=== PATIENT | female | born 1955 | race Caucasian/White ===

== ENCOUNTER → 2017-03-14 | Outpatient (CLI) | payer OTHER ==
[~2017-03-14] MED LIST: ASPI81TA28 PO; CALCTAB5 PO; CHOL100010 PO; ESTR1CRE PV; FSMD/70 PO; OMEG10007 PO; ZOLP5TAB6 PO
--- NOTE | 2017-03-14 15:49 | MAMMOGRAPHY REPORT ---
BILATERAL DIGITAL SCREENING MAMMOGRAM TOMOSYNTHESIS WITH CAD: 03/14/2017 TECHNIQUE: Breast tomosynthesis in addition to standard 2D mammography was performed. Current study was also evaluated with a Computer Aided Detection (CAD) system. COMPARISON: Comparison is made to exams dated: 02/29/2016 mammogram, 12/02/2014 mammogram, 10/08/2013 ma mmogram, 09/25/2012 mammogram, 09/20/2011 mammogram - [facility], and 08/05/2008. BREAST COMPOSITION: The tissue of both breasts is extremely dense, which lowers the sensitivity of m ammography. FINDINGS: No suspicious masses, calcifications, or areas of architectural distortion are noted in ei ther breast. There has been no significant interval change compared to prior exams. IMPRESSION: ACR BI-RADS CATEGORY 1: NEGATIVE There is no mammographic evidence of malignancy. A 1 year screening mammogram is recommended. The pa tient will receive written notification of the results. Approximately 10% of breast cancers are not detected with mammography. A negative mammographic report should not delay biopsy if a clinically suggestive mass is present. Kathy Duran M.D. /:03/14/2017 14:54:22 Shampoo Person: Melodie PORTER(Angela)([place]), [facility] letter sent: Normal 1/2 BI-RADS Code: ACR BI-RADS Category 1: Negative
== END | disposition home or self-care (01) ==
LOC: C.MAMM 13:46
PROVIDERS: ATTEND Obstetrics & Gynecology
DX: Z12.31 Encounter for screening mammogram for malignant neoplasm of breast (principal)

== ENCOUNTER → 2017-11-12 | Outpatient (CLI) | payer OTHER ==
[2017-11-12 13:59] LABS: BLOOD UREA NITROGEN 20 mg/dl (7-18); CALCIUM 8.8 mg/dl (8.5-10.1); CARBON DIOXIDE 26 mmol/L (21-32); CHOLESTEROL 287 mg/dl (0-200); CREATININE 0.98 mg/dl (0.60-1.20); GLUCOSE 94 mg/dl (70-99); LDL CHOLESTEROL CALCULATED 156 mg/dl; POTASSIUM 4.5 mmol/L (3.5-5.1); SODIUM 132 mmol/L (136-145)
== END | disposition home or self-care (01) ==
LOC: C.LABBC 09:02
PROVIDERS: ATTEND Family Medicine Adult Medicine
DX: E78.5 Hyperlipidemia, unspecified (principal)

== ENCOUNTER 2023-05-20 22:41 | Inpatient (IN) ==
[2023-05-20] MEDS ORDERED: ONDANSETRON INJ 2 MG/ML 2 ML VIAL IV STA (22:48)
[2023-05-20] MEDS ORDERED: SODIUM CHLORIDE 0.9% 1,000 ML IV STA (22:48)
[2023-05-20 23:28] LABS: Basophils # (auto) 0.02 K/uL (0.00-0.20); Basophils % (auto) 0.3 %; Eosinophils # (auto) 0.04 K/uL (0.00-0.50); Eosinophils % (auto) 0.6 %; Hemoglobin 12.5 g/dl (12.0-16.0); Immature Granulocytes # (auto) 0.03 K/uL (0.01-0.20); Immature Granulocytes % (auto) 0.5 %; Lymphocytes # (auto) 1.26 K/uL (1.20-3.40); Lymphocytes % (auto) 19.5 %; Mean Corpuscular Hemoglobin 31.1 pg (25.0-34.0); Mean Corpuscular Hgb Conc 34.7 g/dL (32.0-36.0); Mean Corpuscular Volume 89.6 fL (80.0-100.0); Monocytes # (auto) 0.54 K/uL (0.11-0.59); Monocytes % (auto) 8.3 %; Neutrophils # (auto) 4.58 K/uL (1.40-6.50); Neutrophils % (auto) 70.8 %; Platelet Count 209 K/uL (130-400); RDW Coefficient of Variation 11.9 % (11.5-14.5); RDW Standard Deviation 39.1 fL (36.4-46.3); Red Blood Count 4.02 M/uL (4.20-5.40); White Blood Count 6.47 K/ul (4.8-10.8)
[2023-05-20 23:33] LABS: Albumin Globulin Ratio 1.8 (0.9-2); Albumin Level 4.3 gm/dl (3.4-5.0); BUN Creatinine Ratio 18.3 (10-20); Bilirubin,Total 0.8 mg/dl (0.2-1.0); Calcium 8.8 mg/dl (8.6-10.3); Creatinine Clr Calc Pharmacy 57.5 ml/min; Est GFR (African American) 100.7 ml/min; Est GFR (Non-African American) 86.9 ml/min; Globulin 2.4 gm/dl (2.5-4.0); Potassium 4.1 mmol/L (3.5-5.1); Total Protein 6.7 gm/dl (6.0-8.3)
[2023-05-20] MEDS ORDERED: SODIUM CHLORIDE 0.9% 1,000 ML IV ONE (23:38)
--- NOTE | 2023-05-20 23:39 | Emergency Department Note ---
Impression & Plan Acute hyponatremia, Vomiting ED Provider Note NAME: GAUTAM MCGOWAN AGE: 68 SEX: F : 1955 ARRIVES VIA: Walk-In INFORMANT: Patient ED PROVIDER(S): Jj Torres DO CHIEF COMPLAINT: vomiting HPI: Patient is a 68-year-old female with a past medical history of colon polyps, hyperlipidemia that presents to the ER as she just started a bowel prep tonight around 6 PM. She started vomiting persistently following this. She denies any headache or change in vision. No chest pain or shortness of breath. No belly pain. She did not have diarrhea. No dysuria, urgency, or frequency. No other exacerbating or remitting factors. Additional history was obtained by who was present at bedside. ADDITIONAL HISTORY OBTAINED: Per HPI Chronic Medical/Social Conditions Affecting Care: Per HPI PAST MEDICAL HISTORY:See Below PAST SURGICAL HISTORY:See Below FAMILY HISTORY:See Below SOCIAL HISTORY:See Below HOME MEDICATIONS:See Below ALLERGIES:See Below VITALS:See Below PHYSICAL EXAMINATION: GENERAL: Sitting up in bed, alert, well appearing, well nourished, no distress, non-toxic EYE EXAM: normal conjunctiva. OROPHARYNX: mucous membranes are dry LUNGS: Clear to auscultation. Normal chest wall mechanics HEART: no murmurs, S1 normal and S2 normal ABDOMEN: abdomen soft, non-tender, normo-active bowel sounds, no masses, no rebound or guarding. UPPER EXTREMITIES: upper extremities are grossly normal. LOWER EXTREMITIES: No pitting edema. NEURO EXAM: Normal sensorium, cranial nerves II-XII grossly intact, normal speech, no gross weakness of arms, no gross weakness of legs. MEDICAL DECISION MAKING: Patient is a 68-year-old female who presents ER for above-stated complaint. IV was established blood work was obtained. Labs show no significant leukocytosis or anemia. BMP with a significant hyponatremia at 120. LFTs bilirubin were unremarkable. Lipase was normal. UA was clean. Patient complete benign abdominal exam. She was given IV fluids. She is given IV Zofran. She did feel better. With the significant hyponatremia at 120 I do favor that this likely secondary to free water ingestion as she had 7 or 8 16 ounce bottles of water. With the hyponatremia however she was discussed with the hospitalist Dr. Telma Huitron for further evaluation management treatment. External Records Reviewed: Screening by anesthesiology performed yesterday. Note reviewed. Consults/Care Managements Discussions: Per MDM Triage Nursing notes reviewed. Limited review of prior medical records performed Vital Signs: reviewed and remarkable for no significant abnormalities Differential diagnosis: Differential diagnoses includes but is not limited to gastritis, peptic ulcer disease, GERD, gallbladder disease, pancreatitis, small bowel obstruction, appendicitis, diverticulitis, hernia, urinary tract infection, torsion, perforation, trauma, infectious. ER treatment provided: See below Diagnostics interpreted by me include EKG and cardiac monitoring as listed below: -Cardiac Monitoring: An order was placed for continuous cardiac monitoring. The monitor shows a rate of 60 with sinus rhythm. -ECG: none -Laboratory studies:Interpreted by me as stated above in MDM and shown below. Imaging studies: Xrays: As interpreted by me:none CTs show: none Procedures:none Critical Care: None Past Med/Surg History Medical History Insomnia Osteoporosis History of basal cell carcinoma Anemia, unspecified Surgical History History of colonoscopy with polypectomy History of tooth extraction History of wisdom tooth extraction History of exploratory laparotomy Status post Mohs surgery for basal cell carcinoma H/O microdiscectomy L5 Family History Mother Acute myocardial infarction Alzheimer disease Cardiovascular disorder Father Colon cancer, Onset Age: 60 Hypertension Unknown Anemia Sister Breast cancer Family hx colonic polyps Grandfather Colon cancer Brother Family hx colonic polyps Other No family history of adverse response to anesthesia Social History Smoking Status: Never smoker Second Hand Exposure: No; Do You Dip or Chew Tobacco: No; Hx Alcohol Use: Yes Hx Substance Use: No Preferred Language: Palestinian Communication Ability: Effective Certified Welding Inspector Required: No Beliefs That Will Affect Care: None marital status: Current Living Situation: Spouse current occupational status: employed 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 Feels Safe at Home: Yes Diet: vegetarian Physical Activity Frequency: 3-4 Times per Week Sunscreen Use: Yes Assistive Devices: None Allergies Allergies Allergy/AdvReac Type Severity Reaction Status Date / Time No Known Allergies Allergy Verified 05/14/23 15:17 Home Meds Home Medications Medication Instructions Recorded Confirmed calcium carbonate 600 mg calcium 600 mg PO BID 01/27/19 05/20/23 (1,500 mg) tablet cholecalciferol (vitamin D3) 25 1,000 units PO QPM 01/27/19 05/20/23 mcg (1,000 unit) tablet omega-3 fatty acids 1,000 mg 1,000 mg PO QPM 01/27/19 05/20/23 capsule (Fish Oil Concentrate) melatonin 10 mg tablet 5 mg PO HS PRN Sleep 10/03/22 05/20/23 multivitamin (Multiple Vitamins 1 tab PO QPM 12/23/22 05/20/23 tablet) Previous Rx's Medication Instructions Recorded estradiol 0.01% (0.1 mg/gram) 1 g vaginal 2XWK #42.5 grams 05/14/23 vaginal cream zolpidem 5 mg tablet 5 mg PO HS PRN Sleep #10 tabs 05/14/23 Results & Data (ED) Vital Signs Vital Signs - 24 hr 05/20/23 22:45 05/21/23 00:00 05/21/23 00:01 Temperature 35.9 C L 36.6 C Temperature Source Temporal Artery Scan Oral Pulse Rate 66 Pulse Rate [Apical] 61 Respiratory Rate 20 18 Respiratory Effort / Characteristics Non-Labored Spontaneous Respiratory Depth Normal Blood Pressure 146/82 H Blood Pressure [Right Arm] 130/73 Blood Pressure Mean 103 Blood Pressure Mean [Right Arm] 92 Pulse Oximetry 100 99 Oxygen Delivery Method Room Air Room Air Sepsis Recent Fever Within 48 Hours No Sepsis New/Unexplained Change in Mental Status No Sepsis Action Taken by Nursing No Action Required 05/21/23 00:11 Temperature Temperature Source Pulse Rate 61 Pulse Rate [Apical] Respiratory Rate Respiratory Effort / Characteristics Respiratory Depth Blood Pressure Blood Pressure [Right Arm] Blood Pressure Mean Blood Pressure Mean [Right Arm] Pulse Oximetry Oxygen Delivery Method Sepsis Recent Fever Within 48 Hours Sepsis New/Unexplained Change in Mental Status Sepsis Action Taken by Nursing Laboratory Data 05/20/23 23:00 05/21/23 02:14 Lab Results 05/20/23 05/20/23 05/20/23 Range/Units 23:00 23:53 23:55 WBC 6.47 (4.8-10.8) K/ul RBC 4.02 L (4.20-5.40) M/uL Hgb 12.5 (12.0-16.0) g/dl Hct 36.0 L (37.0-47.0) % MCV 89.6 (80.0-100.0) fL MCH 31.1 (25.0-34.0) pg MCHC 34.7 (32.0-36.0) g/dL RDW Std Deviation 39.1 (36.4-46.3) fL RDW Coeff of Linda 11.9 (11.5-14.5) % Plt Count 209 (130-400) K/uL MPV 9.0 L (9.4-12.4) fL Immature Gran % (Auto) 0.5 % Neut % (Auto) 70.8 % Lymph % (Auto) 19.5 % [facility] % (Auto) 8.3 % Eos % (Auto) 0.6 % Baso % (Auto) 0.3 % Neut # (Auto) 4.58 (1.40-6.50) K/uL Lymph # (Auto) 1.26 (1.20-3.40) K/uL [facility] # (Auto) 0.54 (0.11-0.59) K/uL Eos # (Auto) 0.04 (0.00-0.50) K/uL Baso # (Auto) 0.02 (0.00-0.20) K/uL Immature Gran # (Auto) 0.03 (0.01-0.20) K/uL Sodium 120 L (136-145) mmol/L Potassium 4.1 (3.5-5.1) mmol/L Chloride 87 L (98-107) mmol/L Carbon Dioxide 23 (21-32) mmol/L Anion Gap 10 (3-11) BUN 13 (6-23) mg/dl Creatinine 0.71 (0.6-1.2) mg/dl Est Cr Clr Drug Dosing 57.5 ml/min Est GFR ( Amer) 100.7 ml/min Est GFR (Non-Af Amer) 86.9 ml/min BUN/Creatinine Ratio 18.3 (10-20) Glucose 116 H (70-99(Fasting)) mg/dl Osmolality 252 L (280-300) mOsm/kg Calcium 8.8 (8.6-10.3) mg/dl Phosphorus 1.9 L (2.5-4.9) mg/dl Magnesium 1.9 (1.7-2.4) mg/dl Total Bilirubin 0.8 (0.2-1.0) mg/dl AST 25 (13-39) U/L ALT 15 (7-52) U/L Alkaline Phosphatase 47 (34-104) U/L Total Protein 6.7 (6.0-8.3) gm/dl Albumin 4.3 (3.4-5.0) gm/dl Globulin 2.4 L (2.5-4.0) gm/dl Albumin/Globulin Ratio 1.8 (0.9-2) Lipase 27 (11-82) U/L Urine Color Yellow Urine Appearance Clear (Clear) Urine pH 8.5 H (4.5-7.5) Ur Specific [place] 1.011 (1.000-1.030) Urine Protein Negative (Negative) Urine Glucose (UA) Negative (Negative) Urine Ketones 2+ H (Negative) Urine Blood Negative (Negative) Urine Nitrite Negative (Negative) Urine Bilirubin Negative (Negative) Urine Urobilinogen Negative (Negative) Ur Leukocyte Esterase Negative (Negative) Urine Osmolality 437 L (500-800) mOsm/kg Ur Random Sodium 145 mmol/L Administered Medications Discontinued Medications Sodium Chloride (Nss) 1,000 mls @ 999 mls/hr IV .Q1H1M STA Stop: 05/20/23 23:48 Last Infusion: 05/20/23 23:59 Dose: Infused Documented By: Admin: 05/20/23 23:06 Dose: 999 mls/hr Documented By: LUCAS Sodium Chloride (Nss) 1,000 mls @ 999 mls/hr IV .Q1H1M ONE Stop: 05/21/23 00:38 Last Infusion: 05/21/23 00:58 Dose: Infused Documented By: Admin: 05/20/23 23:56 Dose: 999 mls/hr Documented By: TERENCE Ondansetron HCl (Ondansetron Inj 2 Mg/Ml 2 Ml Vial) 4 mg IV NOW STA Stop: 05/20/23 22:49 Last Admin: 05/20/23 23:06 Dose: 4 mg Documented By: LUCAS Discharge Plan Visit Data Chief Complaint: Vomiting Stated Complaint: VOMITING, TOOK PILLS FOR COLONOSCOPY ED Provider: Jj Torres Discharge Problem: Acute hyponatremia, Vomiting Patient Disposition: Admitted As Inpatient Discharge Instructions Interventions: ED Discharge Assessment Last Done: 05/21/23 02:10 Discharge Problem: Vomiting Qualifiers: Vomiting type: unspecified Nausea presence: unspecified Qualified Code(s): R 11.10 - Vomiting, unspecified
[2023-05-21 00:24] LABS: Appearance Urine Clear (Clear); Bilirubin Urine Negative (Negative); Blood Urine Negative (Negative); Color Urine Yellow; Glucose Urine UA Negative (Negative); Ketones Urine 2+ (Negative); Leukocyte Esterase Urine Negative (Negative); Nitrite Urine Negative (Negative); Protein Urine Negative (Negative); Specific Gravity Urine 1.011 (1.000-1.030); Urobilinogen Urine Negative (Negative); pH Urine 8.5 (4.5-7.5)
[2023-05-21 01:41] LABS: Magnesium 1.9 mg/dl (1.7-2.4); Phosphorus 1.9 mg/dl (2.5-4.9)
[2023-05-21] MEDS ORDERED: POTASSIUM PHOS 3 MMOL/1 ML INFUSION IV STA (02:24)
--- NOTE | 2023-05-21 02:29 | History & Physical Report ---
Date of Service May 21, 2023 Assessment & Plan (1) Hyponatremia: Plan: Sodium = 120. Last on record from 12/27/2021 at low normal range sodium = 134. Suspect secondary to acute volume loss in setting of multiple episodes of vomiting. Patient appears mildly hypovolemic on exam. No neurologic deficits. Has been administered 2 L of IV normal saline thus far. Serum osmolality is low at 252, urine osmolality is low at 437. Urine sodium is markedly high at 145 (does not clearly fit into suspected acute volume loss as cause of hyponatremia) Admit to medical with telemetry Repeat basic metabolic profile ordered for 0300 and every 4 hours Careful correction of hyponatremia (2) Vomiting: Plan: Vomiting started after colon prep. Has since resolved. She reports some dark material, uncertain if it was blood. Protonix 40 mg IV daily Zofran as needed F/E/Nawaiting repeat BMP at 0300, additional IV fluids based on sodium results. Hypophosphatemia with Phos = 1.9. Will administer potassium phosphate 15 mmol, regular diet as tolerated Prophylaxislow risk for DVT Codef[place] per discussion with patient Dispositionadmit to medical with telemetry History of Present Illness Chief Complaint: Hyponatremia Primary Care Provider: Xiao Mixon MD Amira Wilhelm is a 68-year-old female presenting with hyponatremia. Patient was taking her colon prep for a routine screening colonoscopy planned for tomorrow. She developed nausea with persistent vomiting and a small amount of diarrhea. She said that she vomited large volume, 6-7 episodes. Some of the vomitus was dark in color, possibly blood. Ongoing nausea as well as dizziness, fatigue and gait instability. Otherwise, she denies fever, chills, chest pain, cough, shortness of breath. No abdominal pain. In the ER she was found to be hyponatremic with sodium = 120. Has been administered normal saline infusion Allergies Allergy/AdvReac Type Severity Reaction Status Date / Time No Known Allergies Allergy Verified 05/14/23 15:17 Home Medications Medication Instructions Recorded Confirmed Type calcium carbonate 600 mg calcium 600 mg PO BID 01/27/19 05/20/23 History (1,500 mg) tablet cholecalciferol (vitamin D3) 25 1,000 units PO QPM 01/27/19 05/20/23 History mcg (1,000 unit) tablet omega-3 fatty acids 1,000 mg 1,000 mg PO QPM 01/27/19 05/20/23 History capsule (Fish Oil Concentrate) melatonin 10 mg tablet 5 mg PO HS PRN Sleep 10/03/22 05/20/23 History multivitamin (Multiple Vitamins 1 tab PO QPM 12/23/22 05/20/23 History tablet) estradiol 0.01% (0.1 mg/gram) 1 g vaginal 2XWK #42.5 grams 05/14/23 05/20/23 Rx vaginal cream zolpidem 5 mg tablet 5 mg PO HS PRN Sleep #10 tabs 05/14/23 05/20/23 Rx Past Med/Surg History Medical History Insomnia Osteoporosis History of basal cell carcinoma Anemia, unspecified Surgical History History of colonoscopy with polypectomy History of tooth extraction History of wisdom tooth extraction History of exploratory laparotomy Status post Mohs surgery for basal cell carcinoma H/O microdiscectomy L5 Family History Mother Acute myocardial infarction Alzheimer disease Cardiovascular disorder Father Colon cancer, Onset Age: 60 Hypertension Unknown Anemia Sister Breast cancer Family hx colonic polyps Grandfather Colon cancer Brother Family hx colonic polyps Other No family history of adverse response to anesthesia Social History Smoking Status: Never smoker Second Hand Exposure: No; Do You Dip or Chew Tobacco: No; Hx Alcohol Use: Yes Hx Substance Use: Yes Last Used Substance Other:: remote hx Preferred Language: Welsh Communication Ability: Effective Java Tech Lead Required: No Beliefs That Will Affect Care: None marital status: Current Living Situation: Spouse current occupational status: employed 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 Feels Safe at Home: Yes Diet: vegetarian Physical Activity Frequency: 3-4 Times per Week Sunscreen Use: Yes Assistive Devices: Hearing Aid - Bilateral Review of Systems Review of Systems: All systems reviewed & are unremarkable except as noted in HPI & below Physical Exam Physical Exam: General: patient resting comfortably, NAD, non-toxic in appearance, AA&O x 4 Skin: warm, dry, intact, no rashes or lesions HEENT: NC/AT, PERRL, EOMI, anicteric sclera, conjunctiva without injection, external ear normal to inspection and nontender, nares patent, moist mucus membranes, dentition intact, no oropharyngeal lesions, neck supple, trachea midline, no LAD, no thyromegaly, no JVD Heart: +S1/S2, regular, no m/r/g Lungs: equal air entry bilaterally, no rales/rhonchi/wheezes Abd: +BS, soft, NT/ND, no masses/organomegaly/ascites Ext: warm, 2+ pulses in UE/LE bilaterally, no clubbing/cyanosis or edema Neuro: nonfocal, patient AA&O x 4, speech intact, no facial droop, moving all extremities on command with equal strength 5/5 Results & Data Results & Data Vital Signs (Past 12 Hours) Vital Signs Temp Pulse Pulse Resp BP BP Pulse Ox 05/21/23 02:10 60 18 94 05/21/23 01:00 62 18 125/71 96 05/21/23 00:11 61 05/21/23 00:01 36.6 C 05/21/23 00:00 61 18 130/73 99 05/20/23 22:45 35.9 C L 66 20 146/82 H 100 O2 Del Method 05/21/23 02:10 Room Air 05/21/23 01:00 Room Air 05/21/23 00:11 05/21/23 00:01 05/21/23 00:00 Room Air 05/20/23 22:45 Room Air Laboratory Results Laboratory Results WBC 6.47 K/ul (4.8-10.8) 05/20/23 23:00 RBC 4.02 M/uL (4.20-5.40) L 05/20/23 23:00 Hgb 12.5 g/dl (12.0-16.0) 05/20/23 23:00 Hct 36.0 % (37.0-47.0) L 05/20/23 23:00 MCV 89.6 fL (80.0-100.0) 05/20/23 23:00 MCH 31.1 pg (25.0-34.0) 05/20/23 23:00 MCHC 34.7 g/dL (32.0-36.0) 05/20/23 23:00 RDW Std Deviation 39.1 fL (36.4-46.3) 05/20/23 23:00 RDW Coeff of Linda 11.9 % (11.5-14.5) 05/20/23 23: Plt Count 209 K/uL (130-400) 05/20/23 23:00 MPV 9.0 fL (9.4-12.4) L 05/20/23 23: Immature Gran % (Auto) 0.5 % 05/20/23 23: Neut % (Auto) 70.8 % 05/20/23 23:00 Lymph % (Auto) 19.5 % 05/20/23 23:00 [place] % (Auto) 8.3 % 05/20/23 23:00 Eos % (Auto) 0.6 % 05/20/23 23:00 Baso % (Auto) 0.3 % 05/20/23 23:00 Neut # (Auto) 4.58 K/uL (1.40-6.50) 05/20/23 23:00 Lymph # (Auto) 1.26 K/uL (1.20-3.40) 05/20/23 23:00 [place] # (Auto) 0.54 K/uL (0.11-0.59) 05/20/23 23:00 Eos # (Auto) 0.04 K/uL (0.00-0.50) 05/20/23 23:00 Baso # (Auto) 0.02 K/uL (0.00-0.20) 05/20/23 23:00 Immature Gran # (Auto) 0.03 K/uL (0.01-0.20) 05/20/23 23:00 Sodium 120 mmol/L (136-145) L 05/20/23 23:00 Potassium 4.1 mmol/L (3.5-5.1) 05/20/23 23:00 Chloride 87 mmol/L (98-107) L 05/20/23 23:00 Carbon Dioxide 23 mmol/L (21-32) 05/20/23 23:00 Anion Gap 10 (3-11) 05/20/23 23:00 BUN 13 mg/dl (6-23) 05/20/23 23:00 Creatinine 0.71 mg/dl (0.6-1.2) 05/20/23 23:00 Est Cr Clr Drug Dosing 57.5 ml/min 05/20/23 23:00 Est GFR ( Amer) 100.7 ml/min 05/20/23 23: Est GFR (Non-Af Amer) 86.9 ml/min 05/20/23 23:00 BUN/Creatinine Ratio 18.3 (10-20) 05/20/23 23: Glucose 116 mg/dl (70-99(Fasting)) H 05/20/23 23:00 Osmolality 252 mOsm/kg (280-300) L 05/20/23 23:53 Calcium 8.8 mg/dl (8.6-10.3) 05/20/23 23:00 Phosphorus 1.9 mg/dl (2.5-4.9) L 05/20/23 23:00 Magnesium 1.9 mg/dl (1.7-2.4) 05/20/23 23:00 Total Bilirubin 0.8 mg/dl (0.2-1.0) 05/20/23 23:00 AST 25 U/L (13-39) 05/20/23 23:00 ALT 15 U/L (7-52) 05/20/23 23:00 Alkaline Phosphatase 47 U/L (34-104) 05/20/23 23:00 Total Protein 6.7 gm/dl (6.0-8.3) 05/20/23 23:00 Albumin 4.3 gm/dl (3.4-5.0) 05/20/23 23:00 Globulin 2.4 gm/dl (2.5-4.0) L 05/20/23 23: Albumin/Globulin Ratio 1.8 (0.9-2) 05/20/23 23:00 Lipase 27 U/L (11-82) 05/20/23 23:00 Urine Color Yellow 05/20/23: Urine Appearance Clear (Clear) 05/20/23: Urine pH 8.5 (4.5-7.5) H 05/20/23 23:55 Ur Specific [place] 1.011 (1.000-1.030) 05/20/23: Urine Protein Negative (Negative) 05/20/23: Urine Glucose (UA) Negative (Negative) 05/20/23 23:55 Urine Ketones 2+ (Negative) H 05/20/23 23:55 Urine Blood Negative (Negative) 05/20/23 23:55 Urine Nitrite Negative (Negative) 05/20/23 23:55 Urine Bilirubin Negative (Negative) 05/20/23 23:55 Urine Urobilinogen Negative (Negative) 05/20/23 23:55 Ur Leukocyte Esterase Negative (Negative) 05/20/23 23:55 Urine Osmolality 437 mOsm/kg (500-800) L 05/20/23 23:55 Ur Random Sodium 145 mmol/L 05/20/23 23:55 PG Care Time/CCT Total # of Minutes Spent Total Time Spent with Patient: Total time spent is greater than 50% in coordination of care (as documented) at patient's floor/unit and/or counseling patient: Coding Level of Care Code 33842 INT INP/OBS CARE 255MIN Diagnoses Hyponatremia E87.1 Vomiting R11.10
[2023-05-21] MEDS ORDERED: POTASSIUM PHOSPHATE 15 MMOL in SODIUM CHLORIDE 0.9% 250 ML IV STA (02:41)
[2023-05-21 02:45] LABS: BUN Creatinine Ratio 16.7 (10-20); Creatinine Clr Calc Pharmacy 61.8 ml/min; Est GFR (African American) 104.5 ml/min; Est GFR (Non-African American) 90.1 ml/min; Potassium 4.1 mmol/L (3.5-5.1)
[2023-05-21] MEDS ORDERED: ZOLPIDEM TARTRATE 5 MG TAB PO PRN (02:58)
[2023-05-21] MEDS ORDERED: MELATONIN 3 MG TAB PO PRN (02:58)
[2023-05-21] MEDS ORDERED: ONDANSETRON INJ 2 MG/ML 2 ML VIAL IV PRN (02:58)
[2023-05-21] MEDS ORDERED: ACETAMINOPHEN 325 MG TAB PO PRN (02:58)
[2023-05-21 04:30] LABS: BUN Creatinine Ratio 15.9 (10-20); Calcium 8.1 mg/dl (8.6-10.3); Creatinine Clr Calc Pharmacy 58.9 ml/min; Est GFR (African American) 102.9 ml/min; Est GFR (Non-African American) 88.8 ml/min
[2023-05-21 09:09] LABS: BUN Creatinine Ratio 13.3 (10-20); Calcium 8.6 mg/dl (8.6-10.3); Creatinine Clr Calc Pharmacy 54.2 ml/min; Est GFR (African American) 94.3 ml/min; Est GFR (Non-African American) 81.3 ml/min
[2023-05-21] MEDS ORDERED: PANTOprazole 40 MG in SYRINGE 0 ML IV SCH (11:00)
--- NOTE | 2023-05-21 17:49 | Discharge Summary ---
Date of Service May 21, 2023 Admission HPI Per Admitting Provider Amira Wilhelm is a 68-year-old female presenting with hyponatremia. Patient was taking her colon prep for a routine screening colonoscopy planned for tomorrow. She developed nausea with persistent vomiting and a small amount of diarrhea. She said that she vomited large volume, 6-7 episodes. Some of the vomitus was dark in color, possibly blood. Ongoing nausea as well as dizziness, fatigue and gait instability. Otherwise, she denies fever, chills, chest pain, cough, shortness of breath. No abdominal pain. In the ER she was found to be hyponatremic with sodium = 120. Has been administered normal saline infusion Principal Diagnosis acute hypovolemic hyponatremia, nausea and vomiting induced by bowel prep Discharge Exam PHYSICAL EXAMINATION Last 24h vital signs reviewed, see documentation in flowsheet General: comfortable appearing, no distress, sitting on EOB, very pleasant HEENT: Normocephalic, atraumatic, pupils round and equal, sclerae anicteric, no conjunctival injection, moist mucus membranes Lungs: Normal respiratory effort. Clear to auscultation bilaterally. No RRW Heart: Regular rate and rhythm, no murmurs. No JVD Abdomen: Soft, nontender, nondistended. Bowel sounds present. Extremities: Warm, dry, well-perfused. No extremity edema. Neuro: Alert and oriented x 4, face symmetric, moves 4 extremities well Psych: Normal affect and behavior Discharge Data Allergies Allergy/AdvReac Type Severity Reaction Status Date / Time No Known Allergies Allergy Verified 05/14/23 15:17 Consultations 05/20/23 23:52 ED Decision to Admit Stat Ordered Studies 05/20/23 23:00 05/21/23 06:24 Hospital Course (1) Acute hyponatremia: (2) Vomiting: Plan Acute nausea and vomiting induced by bowel prep for planned endoscopy, resolved quickly and tolerating oral food and liquids well this morning -will reschedule endoscopy using different prep formulation Acute hypovolemic hyponatremia, possible component of transient SIADH induced by GI distress with elevated urine sodium -volume depleted on admission, treated in ED with 2L IV crystalloid, serial sodium was monitored night of admission initially 120-->127 over 4-5h, however had rapid auto-correction to 133 between 3AM and 6AM -reviewed previous labs last sodium 12/2021 was 134, 11/2017 was 132. reviewed medications - no diuretics or SSRIs or other agents associated with hyponatremia, nutritional status good, serum albumin 4.0, normal oral intake, no reason to suspect chronic hyponatremia -extremely low risk to have CPM since hyponatremia almost certainly acute, thus I did not reverse the natural course of her correction and feel she is safe for discharge home. discussed with Amira and her at bedside. -follow up in primary care, consider repeat BMP on follow up Hypophosphatemia was replaced with IV K phos. Total Time Total Time Spent Total Time Spent (In Minutes): 25 minutes coordinating care for discharge Discharge Plan Discharge Items Patient Disposition: Home - Self-Care Reason For Visit: HYPONATREMIA Discharge Diagnosis: vomiting, dehydration, acute hypovolemic hyponatremia Condition on Discharge: Good Activity: Resume your previous activity Non-emergency contact: Primary Care Provider Call non-emergency contact if: you have any medication questions and your symptoms worsen Follow-up/Referrals: Xiao Mixon MD [Primary Care Provider] - 06/04/23 12:20 pm Diet: Regular Addtl Attending Provider Instructions: Dear Ms. Wilhelm You were treated for dehydration and acute hyponatremia (low blood sodium) related to nausea and vomiting after the attempted bowel prep. You were given IV fluids and your sodium level corrected to low normal. You may eat and drink normally. Return to the ER if you develop recurrent symptoms like nausea/vomiting/diarrhea, abdominal pain, altered level of consciousness It was a pleasure taking care of you in the hospital. Veronica Yoo MD Pending Studies at Discharge: No Stand-Alone Forms: My [facility], Smoking Cessation Medications and DC Order Prescriptions: Continued omega-3 fatty acids [Fish Oil Concentrate] 1,000 mg capsule 1,000 mg PO QPM cholecalciferol (vitamin D3) 1,000 unit tablet 1,000 units PO QPM multivitamin [Multiple Vitamins] Tablet 1 tab PO QPM calcium carbonate 600 mg calcium (1,500 mg) tablet 600 mg PO BID estradiol 0.01 % (0.1 mg/gram) cream 1 g vaginal 2XWK Qty: 42.5 1RF zolpidem 5 mg tablet 5 mg PO HS PRN (Reason: Sleep) Qty: 10 2RF Rx Instructions: TAKE 1 TABLET AT BEDTIME NEEDED FOR INSOMNIA melatonin 10 mg tablet 5 mg PO HS PRN (Reason: Sleep) Patient Comments: Takes 1/2 tab Discharge Orders: Discharge Order (Routine); Ordered 05/21/23 Ordered By: Veronica Yoo Admission Data Admit Date/Time: 05/21/23 00:41 Attending Provider: Veronica Yoo Admit Provider: Saima Huitron Primary Care Provider: Xiao Mixon Other Providers: Saima Huitron Other Interventions: Discharge Summary Assessment (RN) Last Done: 05/21/23 11:13 Coding Level of Care Code 51164 IN/OBS DISCH 30 MIN/LESS Diagnoses Acute hyponatremia E87.1 Vomiting R11.10
== END 2023-05-21 11:48 | disposition home or self-care (01) | DRG 641 ==
LOC: ED 22:41 → INTOOBSV 05-21 00:41 → SUATTDRO 05-21 00:41 → OBSVTOIN 05-21 00:41 → 2S 05-21 00:41